=== PATIENT | male | born 1995 | race Caucasian/White ===

== ENCOUNTER 2021-12-02 10:15 | Outpatient (CLI) | payer BC, SELFPAY ==
[2021-12-02 11:24] LABS: Chloride* 103 mmol/L (96-114); Sodium* 138 mmol/L (135-149)
[2021-12-02 11:25] LABS: Potassium* 4.1 mmol/L (3.6-5.1)
[2021-12-02 11:27] LABS: Carbon Dioxide* 27 mmol/L (20-32); Creatinine* 0.9 mg/dL (0.5-1.5); Estimated Glomerular Filt Rate 119 ml/min
[2021-12-02 11:28] LABS: Blood Urea Nitrogen* 11 mg/dL (5-24); Calcium* 9.6 mg/dL (8.4-10.6); Glucose* 96 mg/dL (60-115)
== END 2021-12-02 10:16 | disposition home or self-care (01) ==
PROVIDERS: Visit Provider Family Medicine
DX: E03.9 Hypothyroidism, unspecified (principal)
CPT/HCPCS: 80048; 84443

== ENCOUNTER 2022-11-24 08:39 | Outpatient (CLI) | payer BC, SELFPAY | END 2022-11-24 08:40 | disposition home or self-care (01) | PROVIDERS: PCP Family Medicine; Visit Provider Family Medicine | DX: Z13.220 Encounter for screening for lipoid disorders (principal); E03.9 Hypothyroidism, unspecified | CPT/HCPCS: 80048; 80061; 84443 ==

== ENCOUNTER 2023-12-27 09:26 | Outpatient (CLI) | payer BC, SELFPAY | END 2023-12-27 09:27 | disposition home or self-care (01) | LOC: FBOREF 09:27 | PROVIDERS: PCP Family Medicine; Visit Provider Family Medicine | DX: E03.9 Hypothyroidism, unspecified (principal) | CPT/HCPCS: 84443 ==

== ENCOUNTER 2024-12-31 09:56 | Outpatient (CLI) | payer BC, SELFPAY | END 2024-12-31 09:57 | disposition home or self-care (01) | PROVIDERS: PCP Family Medicine; Visit Provider Family Medicine | DX: Z00.00 Encounter for general adult medical examination without abnormal findings (principal); E03.9 Hypothyroidism, unspecified | CPT/HCPCS: 80048; 80061; 84443 ==